=== PATIENT | male | born 1990 | race African-American/Black ===

== ENCOUNTER 2021-06-29 20:02 | Emergency (ER) | payer SELFPAY ==
[~2021-06-29] VITALS: Ht 165.1 cm; Wt 48.0 kg
[2021-06-29 20:50] LABS: HEMATOCRIT 41.8 % (39.0-50.0); HEMOGLOBIN 13.7 g/dl (14.0-18.0); IMMATURE GRANULOCYTES 0.3 % (0.0-5.0); MEAN CELL VOLUME 89.5 fL CALC (80.0-100.0); MEAN CORPUSCULAR HGB 29.3 pG CALC (26.0-32.0); MEAN CORPUSCULAR HGB CONC 32.8 g/dL CAL (32.0-36.0); NEUT# 6.21 thou/uL (1.82-7.42); RED BLOOD COUNT 4.67 mill/uL (4.70-6.10); RED CELL DISTRI WIDTH 11.6 % (11.5-15.5)
[2021-06-29 20:58] LABS: ALBUMIN 4.1 g/dL (3.2-5.0); ALKALINE PHOSPHATASE 121 u/l (38-126); ANION GAP 15 (6-22 (CALC)); BILIRUBIN, TOTAL 0.5 mg/dL (0.0-1.4); BUN 14 mg/dL (9-20); BUN/CREATININE RATIO 14 (12-20 (CALC)); CARBON DIOXIDE 27 mmol/l (22-30); CHLORIDE 101 mmol/l (95-108); GFR > 60 ML/MIN (>=60 (CALC)); GFR FOR AFR.AMER. > 60 ML/MIN (>=60 (CALC)); POTASSIUM 3.9 mmol/l (3.5-5.1); SGOT/AST 31 u/l (17-59); SODIUM 139 mmol/l (137-146); TOTAL PROTEIN 7.3 g/dL (6.3-8.2)
[2021-06-29 21:14] LABS: MYOGLOBIN 64 ng/mL (0 - 121)
[2021-06-29] MEDS ORDERED: MEDDOSEPAK PO (23:23)
[2021-06-29] MEDS ORDERED: BENADRYL ALLERG25 MG PO (23:23)
[2021-06-29] MEDS ORDERED: PEPCID20 MG PO (23:23)
[2021-06-29 23:30] VITALS: BP 106/69
== END 2021-06-29 23:30 | disposition home or self-care (01) | DRG 923 ==
LOC: ED 20:02
PROVIDERS: Emergency Medicine
DX: T78.1XXA Other adverse food reactions, not elsewhere classified, initial encounter (principal); F17.210 Nicotine dependence, cigarettes, uncomplicated

== ENCOUNTER 2024-02-08 04:29 | Emergency (ER) | payer SELFPAY ==
[~2024-02-08] VITALS: Ht 165.1 cm; Wt 65.0 kg
[~2024-02-08 04:29] MED LIST: BENADRYL ALLERG25 MG PO; MEDDOSEPAK PO; PEPCID20 MG PO
[2024-02-08 04:36] VITALS: BP 126/92
[2024-02-08 04:45] VITALS: BP 119/77
[2024-02-08 05:00] VITALS: BP 123/80
[2024-02-08 05:09] VITALS: BP 123/80
[2024-02-08] MEDS ORDERED: CEPHALEXIN500 M1 PO (16:21)
== END 2024-02-08 05:22 | disposition home or self-care (01) | DRG 605 ==
LOC: ED 04:29
DX: S60.111A Contusion of right thumb with damage to nail, initial encounter (principal); S60.211A Contusion of right wrist, initial encounter; W23.0XXA Caught, crushed, jammed, or pinched between moving objects, initial encounter; S09.90XA Unspecified injury of head, initial encounter; S51.812A Laceration without foreign body of left forearm, initial encounter; S51.811A Laceration without foreign body of right forearm, initial encounter; W01.110A Fall on same level from slipping, tripping and stumbling with subsequent striking against sharp glass, initial encounter; Y92.009 Unspecified place in unspecified non-institutional (private) residence as the place of occurrence of the external cause; Z72.0 Tobacco use; Z53.29 Procedure and treatment not carried out because of patient's decision for other reasons

== ENCOUNTER 2024-02-08 15:20 | Emergency (ER) | payer SELFPAY ==
[~2024-02-08] VITALS: Ht 165.1 cm; Wt 54.5 kg
[2024-02-08] MEDS ORDERED: CEPHALEXIN500 M1 PO (16:21)
[2024-02-08 16:27] VITALS: BP 124/81
== END 2024-02-08 16:31 | disposition left against medical advice (07) | DRG 605 ==
LOC: ED 15:20
PROC: 0HQEXZZ Repair Left Lower Arm Skin, External Approach (ICD-10-PCS; principal; 2024-02-08)
PROC: 0HQDXZZ Repair Right Lower Arm Skin, External Approach (ICD-10-PCS; 2024-02-08)
DX: S51.812A Laceration without foreign body of left forearm, initial encounter (principal); S51.811A Laceration without foreign body of right forearm, initial encounter; W01.110A Fall on same level from slipping, tripping and stumbling with subsequent striking against sharp glass, initial encounter; Y92.009 Unspecified place in unspecified non-institutional (private) residence as the place of occurrence of the external cause; Z72.0 Tobacco use; Z53.29 Procedure and treatment not carried out because of patient's decision for other reasons

== ENCOUNTER 2024-03-02 02:39 | Emergency (ER) | payer SELFPAY ==
[~2024-03-02] VITALS: Ht 165.1 cm; Wt 52.0 kg
[~2024-03-02 02:39] MED LIST changes: +CEPHALEXIN500 M1 PO
[2024-03-02 02:54] VITALS: BP 127/76
[2024-03-02 03:00] VITALS: BP 114/68
[2024-03-02] MEDS ORDERED: PROMETHAZINE HCL 25 MG/ML AMP IV ONE (03:15)
[2024-03-02] MEDS ORDERED: DiphenhydrAMINE HCL 50 MG/ML SDV IV ONE (03:15)
[2024-03-02] MEDS ORDERED: KETOROLAC TROMETHAMINE 30 MG/ML SDV IV ONE ×2 (03:15)
[2024-03-02] MEDS ORDERED: ACETAMINOPHEN 500 MG TAB PO ONE (03:15)
[2024-03-02 04:07] LABS: BASO% 0.7 % (0-3); EOS% 3.7 % (0-8); HEMATOCRIT 40.8 % (39.0-50.0); IMMATURE GRANULOCYTES 0.2 % (0.0-5.0); LYMPH% 50.7 % (15-41); MEAN CELL VOLUME 90.3 fL CALC (80.0-100.0); MEAN CORPUSCULAR HGB 28.8 pG CALC (26.0-32.0); MEAN CORPUSCULAR HGB CONC 31.9 g/dL CAL (32.0-36.0); MONO% 8.3 % (2-13); NEUT# 3.19 thou/uL (1.82-7.42); NEUT% 36.4 % (42-76); RED BLOOD COUNT 4.52 mill/uL (4.70-6.10); RED CELL DISTRI WIDTH 11.8 % (11.5-15.5)
[2024-03-02 04:14] LABS: ALBUMIN 4.6 g/dL (3.2-5.0); BILIRUBIN, TOTAL 0.5 mg/dL (0.2-1.3); CREATININE 1.1 mg/dL (0.7-1.3); POTASSIUM 3.8 mmol/l (3.5-5.1); TOTAL PROTEIN 7.8 g/dL (6.3-8.2)
[2024-03-02 05:25] LABS: URINE BILIRUBIN - DIPSTICK Negative (NEGATIVE); URINE BLOOD DIPSTICK Trace-intact (NEGATIVE); URINE COLOR Yellow; URINE GLUCOSE - DIPSTICK Negative (NEGATIVE); URINE KETONE Negative (NEGATIVE); URINE LEUK ESTERASE Negative (NEGATIVE); URINE NITRITE - DIPSTICK Negative (Negative); URINE PROTEIN - DIPSTICK Negative (NEG-TRACE); URINE SPECIFIC GRAVITY 1.025; URINE UROBILINOGEN - DIPSTICK 0.2 E.U./dL (0.2)
[2024-03-02] MEDS ORDERED: VOLTAREN - GENE75 MG PO (06:01)
[2024-03-02 06:09] VITALS: BP 114/65
== END 2024-03-02 06:11 | disposition home or self-care (01) | DRG 103 ==
LOC: ED 02:39
PROVIDERS: Family Medicine
DX: R51.9 Headache, unspecified (principal); Z20.822 Contact with and (suspected) exposure to COVID-19